=== PATIENT | female | born 1975 | race Caucasian/White ===

== ENCOUNTER 2022-05-16 21:21 | Emergency (ER) | payer MEDICARE, MEDICAID, SELFPAY ==
[2022-05-16 21:43] VITALS: BP 137/84; PULSE 133; RESP 20; TEMP 36.9; O2SAT 96; BMI 34.0
--- NOTE | 2022-05-16 23:53 | ED.NURSE ---
lab in room for blood draw.
[2022-05-17 00:16] LABS: Basophils Percent Auto 0.5 % (0.0-3.0); Eosinophils Percent Auto 2.3 % (0.0-7.0); Hematocrit 47.9 % (33.0-51.0); Hemoglobin* 16.4 gm/dL (12.0-16.0); Immature Granulocytes Abs Auto 0.12 K/uL (0.00-0.30); Lymphocytes Percent Auto 18.3 % (20-44); Mean Corpuscular HGB Conc 34 gm/dL (32-36); Mean Corpuscular Hemoglobin 29 pg (26-34); Mean Corpuscular Volume 84 fL (80-100); Monocytes Percent Auto 8.9 % (0.0-11.0); Neutrophils Percent Auto 69.1 % (42.0-72.0); Platelet Count* 366 K/uL (140-440); RDW Coefficient of Variation % 13.5 % (11.5-15.5); Red Blood Count 5.69 m/uL (4.00-5.20)
[2022-05-17 00:19] LABS: Slide Review Reflex No
[2022-05-17 00:25] LABS: Amphetamine Screen Urine Negative (Negative); Barbiturate Screen Urine Negative (Negative); Benzodiazepines Screen Urine Negative (Negative); Cannabinoid Screen Urine Negative (Negative); Cocaine Screen Urine Negative (Negative); Methadone Screen Urine Negative (Negative); Methamphetamines Screen Urine Negative (Negative); Opiate Screen Urine Negative (Negative); Oxycodone Screen Urine Negative (Negative); Phencyclidine Screen Urine Negative (Negative); Tricyclic Antidepressant Urine Negative (Negative)
[2022-05-17 00:35] LABS: Chloride* 108 mmol/L (96-114); Potassium* 3.8 mmol/L (3.6-5.1); Sodium* 140 mmol/L (135-149)
[2022-05-17 00:36] LABS: Albumin* 4.3 g/dL (3.3-5.0); Chloride* 109 mmol/L (96-114)
[2022-05-17 00:37] LABS: Potassium* 3.9 mmol/L (3.6-5.1); Sodium* 140 mmol/L (135-149)
[2022-05-17 00:38] LABS: Blood Urea Nitrogen* 10 mg/dL (5-24); Carbon Dioxide* 24 mmol/L (20-32); Creatinine* 0.6 mg/dL (0.5-1.5); Est. Creatinine Clearance* 94.85; Estimated Glomerular Filt Rate 110.65
[2022-05-17 00:39] LABS: Alkaline Phosphatase* 76 U/L (40-150); Aspartate Amino Transferase* 26 U/L (12-35); Bilirubin Total* 0.4 mg/dL (0.1-1.5); Blood Urea Nitrogen* 10 mg/dL (5-24); Calcium* 9.2 mg/dL (8.4-10.6); Carbon Dioxide* 23 mmol/L (20-32); Creatinine* 0.6 mg/dL (0.5-1.5); Est. Creatinine Clearance* 94.85; Estimated Glomerular Filt Rate 110.65; Glucose* 135 mg/dL (60-115); Total Protein* 7.1 g/dL (6.0-8.3)
[2022-05-17 00:40] LABS: Calcium* 9.3 mg/dL (8.4-10.6)
[2022-05-17 00:42] LABS: Ethanol* < 0.01 % (0.01-0.03)
[2022-05-17 00:43] LABS: Acetaminophen* < 10.0 ug/mL (10.0-30.0); Salicylate* < 1.0 mg/dL (1.0-10)
[2022-05-17 00:54] LABS: Alanine Aminotransferase* 21 U/L (4-35)
[2022-05-17] MEDS: OLANZapine 5 MG TAB.RAPDIS 10 MG PO (01:53)
--- NOTE | 2022-05-17 07:14 | ED.NURSE ---
galileo called at [facility]. someone will pick pt up around 8:30.
--- NOTE | 2022-05-17 07:32 | ED.PSYCH ---
HPI - Psych General Date Seen: 05/16/22 Chief Complaint: Psychiatric Problem/Disorder Stated Complaint: MENTAL HEALTH,EUN WON'T LET HER SLEEP Time Seen by Provider: 05/16/22 22:19 Source: patient, RN notes reviewed and other Mode of arrival: EMS Limitations: other History of Present Illness HPI Narrative: This 46-year-old woman brought to the emergency department with primary complaint that she can not sleep. resident of [place]. She says that Eun has been torturing her for a long time and she can not sleep. She starts to feel sick all over. He drives me insane she says. She wanted to come to the emergency department to get some help. She has no interest in SI or HI. Does not intend to hurt herself although I note during exam bryant on her wrist which she says she has self-inflicted. I speak with staff later who note that who suffer was going to get her to hurt herself but Belkys denies that there are command hallucinations. She has been hearing voices specifically that of Eun for for a long time. Staff indicate that this has been newer or increased occurrence over the last week. They have been trying to calm her, reassure of reality, redirect. Later indicating that it appears that Ms. Ellington has been sleeping well; she would indicate the opposite. She says the trazodone is not strong enough Seroquel used to work but not strong enough. Does have a psychiatrist apparently Dr. Edwards who she would probably see in 1 week again. Confirming a staff it would be not until the or 17 I believe. Related Data Home Medications Medication Instructions Recorded Confirmed Anti-Diarrhea PRN 05/16/22 Diabetic Tussin PRN 05/16/22 High Potency Multivitamin 05/16/22 Invega 05/16/22 Mapap (acetaminophen) 05/16/22 Milk of Magnesia 05/16/22 Risperdal 05/16/22 albuterol PRN 05/16/22 antacid hermila PRN 05/16/22 benadryl PRN 05/16/22 calc antacid PRN 05/16/22 dextromethorphan syp PRN 05/16/22 hydroxyzine pamoate PRN 05/16/22 ibuprofen 05/16/22 jardiance 05/16/22 rosuvastatin 10 mg tablet 10 mg PO DAILY 05/16/22 05/16/22 senna 05/16/22 trazodone 05/16/22 Allergies Allergy/AdvReac Type Severity Reaction Status Date / Time diphenhydramine Allergy Verified 05/16/22 21:51 sertraline Allergy Verified 05/16/22 21:51 Review of Systems Status of ROS: Reports: 6 or more systems reviewed and unremarkable except as noted in History and below and other Narrative: Focused on voices. Difficult review of systems other than the immediate. There are no complaints in the immediate; usual state of health. PFSH PFSH Social History Smoking Status: Current every day smoker How often do you have a drink containing alcohol: never AUDIT-C Alcohol total score: 0 Non-prescribed substance use: denies use service: No Exam Narrative: Exam Narrative: Ms. Ellington is a pleasant, disheveled. Dressed in T-shirt and sweats. There is an odor in the room. Thought content is focused on need for sleep. She is calm. Polite. Cranial nerves 2 through 12 intact Head is atraumatic. Oropharynx moist partially edentulous Skin is warm and dry. There carefully placed circular bryant about 6 on each ventral wrist. No surrounding inflammatory changes. No other indication of self-harm. Right hand in particular has nail stains from tobacco. Neck is supple nontender Lungs equal expansion excursion appear to be clear. Abdomen is soft nontender. Moving all extremities without difficulty. Well perfused peripherally Const: Vital Signs, click to edit/add: Vital Signs - 24 hr 05/16/22 21:43 Temperature 98.5 F Pulse Rate [Left P ulse Oximeter] 133 H Respiratory Rate 20 Blood Pressure [Ri ght Upper Arm] 137/84 Pulse Oximetry 96 Documenting provider has reviewed patient's vital signs: yes Course Course Hospital Course: I am anticipating return back to facility with addition of a few doses of sleep aid perhaps Zyprexa which I did discuss with Ms. Ellington. Speaking with staff, Rey, it appeared that further assessment is desired to guarantee safety. Labs were drawn anticipating potential other psychiatric cares/placement. did ask DEC to do further interview. Brooklynn did longer form interview with Ms. Ellington and staff of [place]. Also concurs that not imminent risk and confirms plan for increased monitoring during smoke breaks and otherwise. Also to consider outpatient adjustment to medications. Able to contract for safety per DEC interview. Vital Signs Vital signs: Initial Vital Signs Temperature 98.5 F 05/16/22 21:43 Temperature Source Temporal Artery Scan 05/16/22 21:43 Pulse Rate 133 H 05/16/22 21:43 Respiratory Rate 20 05/16/22 21:43 Blood Pressure 137/84 05/16/22 21:43 Blood Pressure Mean 101 05/16/22 21:43 Blood Pressure Position Sitting 05/16/22 21:43 Pulse Oximetry 96 05/16/22 21:43 Oxygen Delivery Method 05/16/22 21:43 Vital Signs Temperature 98.5 F 05/16/22 21:43 Pulse Rate 133 H 05/16/22 21:43 Respiratory Rate 20 05/16/22 21:43 Blood Pressure 137/84 05/16/22 21:43 Pulse Oximetry 96 05/16/22 21:43 Temperature 98.5 F 05/16/22 21:43 Pulse Rate 133 H 05/16/22 21:43 Respiratory Rate 20 05/16/22 21:43 Blood Pressure 137/84 05/16/22 21:43 Pulse Oximetry 96 05/16/22 21:43 MDM - Psych MDM Narrative Medical decision making narrative: Does not appear that Ms. Ellington is a a real danger to herself beyond this self-harm is indicated above. There is a discrepancy as to the amount of sleep she is actually getting. I do think evaluation with her primary psychiatrist to review medication adjustment might be in order. Did receive, per request a dose of Zyprexa here in the emergency department to ensure good sleep. After plan of care at [place] made by Brooklynn and [facility] staff, it sounds as though would be acceptable to return home. Unfortunately due to staffing shortage are not able to come tonight to pick her up requesting that she be able to stay in the emergency department overnight until they can retrieve her in the morning. Early on in visit Ms. Ellington had only requested to receive sleep aid return home but is willing to sleep ER as recommended. Lab Data Labs: Lab Results 05/16/22 05/17/22 05/17/22 Range/Units 23:50 00:00 00:00 WBC 13.20 H (4.50-11.00) K/uL RBC 5.69 H (4.00-5.20) m/uL Hgb 16.4 H (12.0-16.0) gm/dL Hct 47.9 (33.0-51.0) % MCV 84 (80-100) fL MCH 29 (26-34) pg MCHC 34 (32-36) gm/dL RDW Coeff of Jett 13.5 (11.5-15.5) % Plt Count 366 (140-440) K/uL Neut % (Auto) 69.1 (42.0-72.0) % Lymph % (Auto) 18.3 L (20-44) % Rapides % (Auto) 8.9 (0.0-11.0) % Eos % (Auto) 2.3 (0.0-7.0) % Baso % (Auto) 0.5 (0.0-3.0) % Neut # (Auto) 9.10 H (1.7-7.0) K/uL Lymph # (Auto) 2.40 (0.90-2.90) K/uL Rapides # (Auto) 1.20 H (0.00-0.90) K/UL Eos # (Auto) 0.30 (0.00-0.50) K/uL Baso # (Auto) 0.10 (0.00-0.30) K/uL Abs Immat Gran (auto) 0.12 (0.00-0.30) K/uL Sodium 140 (135-149) mmol/L Potassium 3.8 (3.6-5.1) mmol/L Chloride 108 (96-114) mmol/L Carbon Dioxide 24 (20-32) mmol/L BUN 10 (5-24) mg/dL Creatinine 0.6 (0.5-1.5) mg/dL Estimated Creat Clear 94.85 Glucose 135 H (60-115) mg/dL Calcium 9.2 (8.4-10.6) mg/dL Total Bilirubin (0.1-1.5) mg/dL AST (12-35) U/L ALT (4-35) U/L Alkaline Phosphatase (40-150) U/L Total Protein (6.0-8.3) g/dL Albumin (3.3-5.0) g/dL Salicylates (1.0-10) mg/dL Urine Opiates Screen Negative (Negative) Ur Oxycodone Screen Negative (Negative) Urine Methadone Screen Negative (Negative) Ur Propoxyphene Screen Negative (Negative) Acetaminophen (10.0-30.0) ug/mL Ur Barbiturates Screen Negative (Negative) U Tricyclic Antidepress Negative (Negative) Ur Phencyclidine Scrn Negative (Negative) Ur Amphetamines Screen Negative (Negative) U Methamphetamines Scrn Negative (Negative) U Benzodiazepines Scrn Negative (Negative) Urine Cocaine Screen Negative (Negative) U Marijuana (THC) Screen Negative (Negative) Ur Drug Screen Comment See Note Ethyl Alcohol < 0.01 L (0.01-0.03) % /04/03 Range/Units 00:00 WBC (4.50-11.00) K/uL RBC (4.00-5.20) m/uL Hgb (12.0-16.0) gm/dL Hct (33.0-51.0) % MCV (80-100) fL MCH (26-34) pg MCHC (32-36) gm/dL RDW Coeff of Jett (11.5-15.5) % Plt Count (140-440) K/uL Neut % (Auto) (42.0-72.0) % Lymph % (Auto) (20-44) % Rapides % (Auto) (0.0-11.0) % Eos % (Auto) (0.0-7.0) % Baso % (Auto) (0.0-3.0) % Neut # (Auto) (1.7-7.0) K/uL Lymph # (Auto) (0.90-2.90) K/uL Rapides # (Auto) (0.00-0.90) K/UL Eos # (Auto) (0.00-0.50) K/uL Baso # (Auto) (0.00-0.30) K/uL Abs Immat Gran (auto) (0.00-0.30) K/uL Sodium 140 (135-149) mmol/L Potassium 3.9 (3.6-5.1) mmol/L Chloride 109 (96-114) mmol/L Carbon Dioxide 23 (20-32) mmol/L BUN 10 (5-24) mg/dL Creatinine 0.6 (0.5-1.5) mg/dL Estimated Creat Clear 94.85 Glucose 135 H (60-115) mg/dL Calcium 9.3 (8.4-10.6) mg/dL Total Bilirubin 0.4 (0.1-1.5) mg/dL AST 26 (12-35) U/L ALT 21 (4-35) U/L Alkaline Phosphatase 76 (40-150) U/L Total Protein 7.1 (6.0-8.3) g/dL Albumin 4.3 (3.3-5.0) g/dL Salicylates < 1.0 L (1.0-10) mg/dL Urine Opiates Screen (Negative) Ur Oxycodone Screen (Negative) Urine Methadone Screen (Negative) Ur Propoxyphene Screen (Negative) Acetaminophen < 10.0 L (10.0-30.0) ug/mL Ur Barbiturates Screen (Negative) U Tricyclic Antidepress (Negative) Ur Phencyclidine Scrn (Negative) Ur Amphetamines Screen (Negative) U Methamphetamines Scrn (Negative) U Benzodiazepines Scrn (Negative) Urine Cocaine Screen (Negative) U Marijuana (THC) Screen (Negative) Ur Drug Screen Comment Ethyl Alcohol (0.01-0.03) % Discharge Plan Discharge Clinical Impression: Chronic schizophrenia, Auditory hallucinations, Self-harming behavior Patient Disposition: Home w/ Parent or Adult Condition: Stable Additional Instructions: Please discuss with your psychiatrist/medical prescriber other options to help with sleep. See DEC paperwork for safety plan. Prescriptions: No Action High Potency Multivitamin 0RF Invega 0RF Rx Instructions: take 3mg tab with 9mg tab daily HS jardiance 0RF Rx Instructions: take 10mg daily for 30 days then start 25mg daily. Took 10mg 05/16/22 Risperdal 0RF Rx Instructions: inject 50mg IM every two weeks rosuvastatin 10 mg tablet 10 mg PO DAILY 0RF albuterol PRN0RF antacid hermila PRN0RF Anti-Diarrhea PRN0RF calc antacid PRN0RF dextromethorphan syp PRN0RF Diabetic Tussin PRN0RF benadryl PRN (Reason: allergy symptoms) 0RF hydroxyzine pamoate PRN0RF Rx Instructions: 50mg cap every 8 hours prn ibuprofen 0RF Rx Instructions: 1 to 2 tabs po q 4-6hr prn Mapap (acetaminophen) 0RF Rx Instructions: 1-2 tab po q 4-6 hr prn for pain/fever Milk of Magnesia 0RF Rx Instructions: 15-30ml po once daily prn senna 0RF Rx Instructions: 2 tabs po bid prn constipation trazodone 0RF Rx Instructions: 150mg tab HS prn SLEEP Follow Up/Referrals: Provider,Not a Local [Primary Care Provider] - Stand Alone Forms: MyHealth Info Instructions
[2022-05-17 08:04] VITALS: BP 107/49; PULSE 86; RESP 16; TEMP 36.6; O2SAT 93
--- NOTE | 2022-05-17 08:14 | ED.NURSE ---
pt awake, up to bathroom, states she did not get any sleep. dc teaching reviewed and DEC safety plan reviewed with pt. pt eating breakfast and waiting for ride
== END 2022-05-17 08:35 ==
PROVIDERS: Emergency Provider Family Medicine
DX: F20.9 Schizophrenia, unspecified (principal); R44.0 Auditory hallucinations
CPT/HCPCS: 36415; 80048; 80053; 80143; 80179; 80306; 82077; 85025; 99283; 99284; A9270

== ENCOUNTER 2025-04-21 08:14 | Outpatient (CLI) | payer MEDICARE, MEDICAID, SELFPAY ==
[2025-04-21 10:45] LABS: Hematocrit 49.6 % (33.0-51.0); Hemoglobin* 16.9 gm/dL (12.0-16.0); Mean Corpuscular HGB Conc 34 gm/dL (32-36); Mean Corpuscular Hemoglobin 29 pg (26-34); Mean Corpuscular Volume 86 fL (80-100); Platelet Count* 339 K/uL (140-440); Red Blood Count 5.77 m/uL (4.00-5.20); White Blood Count* 11.12 K/uL (4.50-11.00)
[2025-04-21 10:46] LABS: Slide Review Reflex No
[2025-04-21 10:52] LABS: Hemoglobin A1C* 6.5 % (0-5.6)
[2025-04-21 11:01] LABS: Vitamin D 25 Hydroxy* 91 ng/mL (30-80)
[2025-04-21 11:44] LABS: Albumin* 4.4 g/dL (3.3-5.0); Chloride* 108 mmol/L (96-114); Potassium* 4.3 mmol/L (3.6-5.1); Sodium* 139 mmol/L (135-149)
[2025-04-21 11:47] LABS: Alanine Aminotransferase* 28 U/L (4-35); Alkaline Phosphatase* 56 U/L (40-150); Anion Gap 9 mEq/L (7-15); Aspartate Amino Transferase* 31 U/L (12-35); Bilirubin Total* 0.5 mg/dL (0.1-1.5); Blood Urea Nitrogen* 9 mg/dL (7-30); Calcium* 10.2 mg/dL (8.4-10.6); Carbon Dioxide* 22 mmol/L (20-32); Cholesterol* 146 mg/dL (90-199); Creatinine* 0.5 mg/dL (0.5-1.5); Estimated Glomerular Filt Rate 113 ml/min; Glucose* 143 mg/dL (60-115); HDL Cholesterol* 33 mg/dL (>=50); LDL Cholesterol Calculated 57 mg/dL (<100); Total Protein* 6.9 g/dL (6.0-8.3); Triglycerides* 279 mg/dL (40-149)
== END 2025-04-21 08:15 | disposition home or self-care (01) ==
LOC: NPINS 08:18
PROVIDERS: Visit Provider Family Medicine
DX: I11.9 Hypertensive heart disease without heart failure (principal); E78.2 Mixed hyperlipidemia; E11.65 Type 2 diabetes mellitus with hyperglycemia; F41.1 Generalized anxiety disorder; E55.9 Vitamin D deficiency, unspecified
CPT/HCPCS: 80053; 80061; 82306; 83036; 84443; 85027